=== PATIENT | male | born 1950 | race Two or more races ===

== ENCOUNTER 2018-02-04 08:08 | Day surgery (SDC) | payer OTHER | END 2018-02-04 13:40 | disposition home or self-care (01) | LOC: AMB-ENDOS 08:08 | DX: D12.5 Benign neoplasm of sigmoid colon (principal); D12.4 Benign neoplasm of descending colon; K57.32 Diverticulitis of large intestine without perforation or abscess without bleeding; K64.8 Other hemorrhoids ==